=== PATIENT | male | born 1995 | race Caucasian/White ===

== ENCOUNTER 2019-09-21 16:43 | Emergency (ER) | payer BC ==
[~2019-09-21] VITALS: Ht 180.3 cm; Wt 92.1 kg
[2019-09-21 17:06] VITALS: Ht 180.3 cm; Wt 92.1 kg
[2019-09-21 17:55] LABS: CHLORIDE SERUM 103 mmol/L (98-107); POTASSIUM SERUM 3.5 mmol/L (3.5-5.1); SODIUM SERUM 140 mmol/L (136-145)
[2019-09-21 17:56] LABS: ALBUMIN 4.5 g/dL (3.4-5.0); ALKALINE PHOSPHATASE 83 U/L (46-116); AST/SGOT 26 U/L (15-37); BASOPHIL % 0.3 % (0-2); BILIRUBIN TOTAL 0.36 mg/dL (0.20-1.00); CALCIUM 8.8 mg/dL (8.5-10.1); CREATININE SERUM 1.1 mg/dL (0.7-1.3); GFR1 > 60 mL/min; GLUCOSE SERUM 107 mg/dL (74-106); PLATELET COUNT 303 x10^3mcL (130-400); RED CELL DISTRIBUTION WIDTH 12.8 % (11.5-14.5); TOTAL PROTEIN, SERUM 8.3 g/dL (6.4-8.2)
[2019-09-21 18:12] LABS: ALT/SGPT 70 U/L (16-63)
[2019-09-21 19:04] LABS: microscopic required? NO
[2019-09-21 19:14] LABS: urine erythrocyte NEGATIVE (NEGATIVE)
[2019-09-21 19:30] LABS: AMPHETAMINE QUAL UR NONE DETECTED (See below)
[2019-09-21 20:43] VITALS: BP 136/85
== END 2019-09-21 20:43 | disposition home or self-care (01) ==
LOC: ED 16:43
PROVIDERS: Emergency Medicine
DX: R07.89 Other chest pain (principal); Z91.013 Allergy to seafood
CPT/HCPCS: 36415